=== PATIENT | female | born 1990 | race Caucasian/White ===

== ENCOUNTER 2017-09-24 16:07 | Emergency (ER) | payer SELFPAY ==
[~2017-09-24] VITALS: Ht 170.2 cm; Wt 73.6 kg
[2017-09-24 16:10] VITALS: BP 110/73
== END 2017-09-24 17:06 | disposition home or self-care (01) ==
LOC: ED 16:40
DX: T19.2XXA Foreign body in vulva and vagina, initial encounter (principal); X58.XXXA Exposure to other specified factors, initial encounter; Y93.89 Activity, other specified; Y92.89 Other specified places as the place of occurrence of the external cause; Y99.8 Other external cause status
CPT/HCPCS: 99281